=== PATIENT | male | born 1965 | race Caucasian/White ===

== ENCOUNTER 2018-09-23 23:19 | Inpatient (IN) | payer BC, OTHER ==
[2018-09-23 23:55] LABS: ADD MAN DIFF? NO
[2018-09-24 00:05] LABS: WHITE BLOOD COUNT 18.1 10^3/ul (4.8-10.8)
[2018-09-24 00:05] LABS: BASOPHIL # 0.1 10^3/ul (0.0-0.1); BASOPHILS % 0.3 % (0.0-2.0); EOSINOPHILS # 0.1 10^3/ul (0.0-0.5); EOSINOPHILS % 0.8 % (0.0-7.0); HEMOGLOBIN 15.4 g/dl (14.0-18.0); LYMPHOCYTES # 1.3 10^3/ul (0.8-2.9); LYMPHOCYTES % 7.3 % (15.0-51.0); MEAN CORPUSCULAR HEMOGLOBIN 31.2 pg (29.0-33.0); MEAN CORPUSCULAR HGB CONC 32.8 g/dl (32.0-37.0); MEAN CORPUSCULAR VOLUME 95.3 fl (82.0-101.0); MEAN PLATELET VOLUME 9.1 fl (7.4-10.4); MONOCYTE # 1.2 10^3/ul (0.3-0.9); MONOCYTES % 6.5 % (0.0-11.0); NEUTROPHIL # 15.3 10^3/ul (1.6-7.5); NEUTROPHILS % 84.4 % (39.0-77.0); PLATELET COUNT 205 10^3/UL (140-415); RED BLOOD COUNT 4.93 10^6/ul (4.70-6.10); RED CELL DISTRIBUTION WIDTH 12.5 % (11.5-14.5)
[2018-09-24] MEDS: SODIUM CHLORIDE 0.9% 1L BAG IV* (00:06)
[2018-09-24] MEDS: PIPER-TAZO 3.375 GM IV (PMX) 100 ML IVPB (00:06)
[2018-09-24 00:30] LABS: LACTIC ACID 1.3 mmol/L (0.5-2.0)
[2018-09-24 00:30] LABS: ALANINE AMINOTRANSFERASE 30 IU/L (13-69); ALBUMIN 4.4 g/dl (3.3-4.9); ALBUMIN/GLOBULIN RATIO 1.29; ALKALINE PHOSPHATASE 47 IU/L (42-121); ANION GAP 7 (5-13); ASPARTATE AMINO TRANSFERASE 25 IU/L (15-46); BILIRUBIN,INDIRECT 0.3 mg/dl (0-1.1); BILIRUBIN,TOTAL 0.3 mg/dl (0.2-1.3); BLOOD UREA NITROGEN 17 mg/dl (7-20); CALCIUM 9.2 mg/dl (8.4-10.2); CARBON DIOXIDE 28 mmol/L (21-31); CHLORIDE 106 mmol/L (97-110); CREATININE 0.92 mg/dl (0.61-1.24); Estimated GFR > 60 mL/min (>60); GLUCOSE 111 mg/dl (70-220); INR 0.88; POTASSIUM 4.2 mmol/L (3.5-5.1); PT RATIO 0.9; SODIUM 141 mmol/L (135-144); TOTAL PROTEIN 7.8 g/dl (6.1-8.1)
[2018-09-24 00:31] LABS: PARTIAL THROMBOPLASTIN TIME 26.6 Sec (23.0-35.0)
[2018-09-24 00:41] LABS: TROPONIN-I < 0.012 ng/ml (0.000-0.120)
[2018-09-24] MEDS: VANCOMYCIN 1 GM (PMX) 250 ML IVPB (00:44)
[2018-09-24 01:47] LABS: ADD UMIC NO; UR ASCORBIC ACID NEGATIVE (NEGATIVE); UR BILIRUBIN (Dip) NEGATIVE (NEGATIVE); UR BLOOD (Dip) NEGATIVE (NEGATIVE); UR CLARITY CLEAR (CLEAR); UR COLOR YELLOW (YELLOW); UR GLUCOSE (Dip) NEGATIVE (NEGATIVE); UR KETONES (Dip) NEGATIVE (NEGATIVE); UR LEUKOCYTE ESTERASE (Dip) NEGATIVE Leu/ul (NEGATIVE); UR NITRITE (Dip) NEGATIVE (NEGATIVE); UR SPECIFIC GRAVITY (Dip) 1.013 (1.003-1.030); UR TOTAL PROTEIN (Dip) NEGATIVE (NEGATIVE); UR UROBILINOGEN (Dip) NEGATIVE (NEGATIVE)
[2018-09-24 05:51] LABS: ADD MAN DIFF? NO
[2018-09-24 05:54] LABS: BASOPHILS % 0.2 % (0.0-2.0); EOSINOPHILS # 0.1 10^3/ul (0.0-0.5); EOSINOPHILS % 0.5 % (0.0-7.0); HEMATOCRIT 42.2 % (42.0-52.0); HEMOGLOBIN 13.9 g/dl (14.0-18.0); LYMPHOCYTES # 1.3 10^3/ul (0.8-2.9); LYMPHOCYTES % 8.8 % (15.0-51.0); MEAN CORPUSCULAR HEMOGLOBIN 31.6 pg (29.0-33.0); MEAN CORPUSCULAR HGB CONC 32.9 g/dl (32.0-37.0); MEAN CORPUSCULAR VOLUME 95.9 fl (82.0-101.0); MEAN PLATELET VOLUME 9.1 fl (7.4-10.4); MONOCYTE # 0.9 10^3/ul (0.3-0.9); MONOCYTES % 6.1 % (0.0-11.0); NEUTROPHIL # 12.6 10^3/ul (1.6-7.5); NEUTROPHILS % 83.9 % (39.0-77.0); PLATELET COUNT 174 10^3/UL (140-415); RED CELL DISTRIBUTION WIDTH 12.8 % (11.5-14.5)
[2018-09-24 05:54] LABS: WHITE BLOOD COUNT 15.1 10^3/ul (4.8-10.8)
[2018-09-24] MEDS ORDERED: HYDROCODONE/APAP (5/325) TAB PO (06:00)
[2018-09-24] MEDS ORDERED: ONDANSETRON 4 MG INJ IV (06:00)
[2018-09-24] MEDS ORDERED: NACL 0.9% 3 ML SYG IV (06:00)
[2018-09-24] MEDS ORDERED: VANCOMYCIN IV PER PHARMACY XX (06:00)
[2018-09-24 06:17] LABS: ALANINE AMINOTRANSFERASE 33 IU/L (13-69); ALBUMIN 4.3 g/dl (3.3-4.9); ALKALINE PHOSPHATASE 48 IU/L (42-121); ANION GAP 8 (5-13); ASPARTATE AMINO TRANSFERASE 24 IU/L (15-46); BILIRUBIN,INDIRECT 0.3 mg/dl (0-1.1); BILIRUBIN,TOTAL 0.3 mg/dl (0.2-1.3); BLOOD UREA NITROGEN 17 mg/dl (7-20); CALCIUM 9.4 mg/dl (8.4-10.2); CARBON DIOXIDE 29 mmol/L (21-31); CHLORIDE 106 mmol/L (97-110); CREATININE 0.92 mg/dl (0.61-1.24); Estimated GFR > 60 mL/min (>60); GLUCOSE 105 mg/dl (70-220); MAGNESIUM 1.9 mg/dl (1.7-2.5); PHOSPHORUS 3.2 mg/dl (2.5-4.9); POTASSIUM 4.3 mmol/L (3.5-5.1); SODIUM 143 mmol/L (135-144); TOTAL PROTEIN 7.6 g/dl (6.1-8.1)
[2018-09-24] MEDS: PANTOPRAZOLE (EC) 40 MG TAB PO (06:30)
[2018-09-24] MEDS: SOD CHLORIDE 0.9% 1,000 ML IV ×3 (06:50→17:17)
[2018-09-24] MEDS: VANCOMYCIN 1 GM 250 ML IVPB (06:55)
[2018-09-24] MEDS: ACETAMINOPHEN 325 MG TAB PO (06:55)
[2018-09-24 07:33] LABS: LACTIC ACID 1.2 mmol/L (0.5-2.0)
[2018-09-24] MEDS: CEFEPIME 1GM/50 ML (PMX) 50 ML IVPB ×2 (08:49→21:07)
[2018-09-24] MEDS: ASPIRIN (EC) 81 MG TAB PO (08:55)
[2018-09-24] MEDS: ENOXAPARIN 40 MG/0.4 ML SYG SC (08:55)
[2018-09-24] MEDS ORDERED: NON-FORMULARY/PATIENT OWN MED (Omeprazole* (Prilosec*) 40 MG) PO (09:00)
[2018-09-24] MEDS: VANCOMYCIN HCL 1.25 GM in SOD CHLORIDE 0.9% 250 ML IVPB (21:45)
[2018-09-25] MEDS: PANTOPRAZOLE (EC) 40 MG TAB PO (05:45)
[2018-09-25 06:04] LABS: ADD MAN DIFF? NO
[2018-09-25 06:11] LABS: BASOPHIL # 0.1 10^3/ul (0.0-0.1); BASOPHILS % 0.5 % (0.0-2.0); EOSINOPHILS # 0.2 10^3/ul (0.0-0.5); EOSINOPHILS % 1.8 % (0.0-7.0); HEMATOCRIT 42.2 % (42.0-52.0); HEMOGLOBIN 14.1 g/dl (14.0-18.0); LYMPHOCYTES # 1.9 10^3/ul (0.8-2.9); LYMPHOCYTES % 17.1 % (15.0-51.0); MEAN CORPUSCULAR HEMOGLOBIN 31.6 pg (29.0-33.0); MEAN CORPUSCULAR HGB CONC 33.4 g/dl (32.0-37.0); MEAN CORPUSCULAR VOLUME 94.6 fl (82.0-101.0); MEAN PLATELET VOLUME 9.2 fl (7.4-10.4); MONOCYTES % 9.4 % (0.0-11.0); NEUTROPHIL # 7.7 10^3/ul (1.6-7.5); NEUTROPHILS % 70.6 % (39.0-77.0); PLATELET COUNT 163 10^3/UL (140-415); RED BLOOD COUNT 4.46 10^6/ul (4.70-6.10)
[2018-09-25 06:11] LABS: WHITE BLOOD COUNT 10.9 10^3/ul (4.8-10.8)
[2018-09-25 06:36] LABS: ANION GAP 6 (5-13); BLOOD UREA NITROGEN 11 mg/dl (7-20); CALCIUM 8.6 mg/dl (8.4-10.2); CARBON DIOXIDE 26 mmol/L (21-31); CHLORIDE 109 mmol/L (97-110); Estimated GFR > 60 mL/min (>60); GLUCOSE 111 mg/dl (70-220); POTASSIUM 4.2 mmol/L (3.5-5.1); SODIUM 141 mmol/L (135-144)
[2018-09-25] MEDS: VANCOMYCIN HCL 1.25 GM in SOD CHLORIDE 0.9% 250 ML IVPB ×2 (08:30→20:17)
[2018-09-25] MEDS: ASPIRIN (EC) 81 MG TAB PO (08:30)
[2018-09-25] MEDS: CEFEPIME 1GM/50 ML (PMX) 50 ML IVPB (08:30)
[2018-09-25] MEDS: ENOXAPARIN 40 MG/0.4 ML SYG SC (08:32)
[2018-09-25] MEDS: SOD CHLORIDE 0.9% 1,000 ML IV (08:33)
[2018-09-25] MEDS: HYDROCODONE/APAP (5/325) TAB PO (12:33)
[2018-09-25] MEDS: PIPER-TAZO 3.375 GM IV (PMX) 100 ML IVPB ×2 (14:22→23:33)
[2018-09-25 19:31] LABS: VANCOMYCIN,TROUGH 6.9 ug/ml (10.0-20.0)
[2018-09-25] MEDS: FUROSEMIDE 40 MG INJ IV (20:18)
[2018-09-26] MEDS: VANCOMYCIN 1 GM 250 ML IVPB ×3 (03:48→21:12)
[2018-09-26] MEDS: PANTOPRAZOLE (EC) 40 MG TAB PO (05:35)
[2018-09-26] MEDS: PIPER-TAZO 3.375 GM IV (PMX) 100 ML IVPB ×2 (06:04→14:19)
[2018-09-26] MEDS: ENOXAPARIN 40 MG/0.4 ML SYG SC (09:07)
[2018-09-26] MEDS: ASPIRIN (EC) 81 MG TAB PO (09:08)
[2018-09-26] MEDS: CEFTRIAXONE 1 GM/50 ML (PMX) 50 ML IVPB (15:54)
[2018-09-27] MEDS: VANCOMYCIN 1 GM 250 ML IVPB ×3 (03:55→20:28)
[2018-09-27 05:41] LABS: ADD MAN DIFF? NO
[2018-09-27 05:48] LABS: BASOPHIL # 0.1 10^3/ul (0.0-0.1); EOSINOPHILS # 0.3 10^3/ul (0.0-0.5); EOSINOPHILS % 4.3 % (0.0-7.0); HEMATOCRIT 43.2 % (42.0-52.0); HEMOGLOBIN 14.2 g/dl (14.0-18.0); LYMPHOCYTES # 2.2 10^3/ul (0.8-2.9); LYMPHOCYTES % 32.3 % (15.0-51.0); MEAN CORPUSCULAR HEMOGLOBIN 31.3 pg (29.0-33.0); MEAN CORPUSCULAR HGB CONC 32.9 g/dl (32.0-37.0); MEAN CORPUSCULAR VOLUME 95.4 fl (82.0-101.0); MONOCYTE # 0.9 10^3/ul (0.3-0.9); MONOCYTES % 12.8 % (0.0-11.0); NEUTROPHIL # 3.3 10^3/ul (1.6-7.5); NEUTROPHILS % 48.6 % (39.0-77.0); PLATELET COUNT 204 10^3/UL (140-415); RED BLOOD COUNT 4.53 10^6/ul (4.70-6.10); RED CELL DISTRIBUTION WIDTH 12.4 % (11.5-14.5)
[2018-09-27 05:48] LABS: WHITE BLOOD COUNT 6.7 10^3/ul (4.8-10.8)
[2018-09-27] MEDS: PANTOPRAZOLE (EC) 40 MG TAB PO (06:02)
[2018-09-27] MEDS: ENOXAPARIN 40 MG/0.4 ML SYG SC (09:54)
[2018-09-27] MEDS: ASPIRIN (EC) 81 MG TAB PO (09:57)
[2018-09-27 11:10] LABS: VANCOMYCIN,TROUGH 10.3 ug/ml (10.0-20.0)
[2018-09-27] MEDS: CEFTRIAXONE 1 GM/50 ML (PMX) 50 ML IVPB (16:17)
[2018-09-28] MEDS: VANCOMYCIN 1 GM 250 ML IVPB ×2 (04:04→12:00)
[2018-09-28] MEDS: PANTOPRAZOLE (EC) 40 MG TAB PO (05:58)
[2018-09-28 07:22] LABS: ADD MAN DIFF? NO
[2018-09-28 07:26] LABS: BASOPHIL # 0.1 10^3/ul (0.0-0.1); EOSINOPHILS # 0.3 10^3/ul (0.0-0.5); EOSINOPHILS % 3.6 % (0.0-7.0); HEMATOCRIT 43.3 % (42.0-52.0); HEMOGLOBIN 14.1 g/dl (14.0-18.0); LYMPHOCYTES # 2.2 10^3/ul (0.8-2.9); LYMPHOCYTES % 30.3 % (15.0-51.0); MEAN CORPUSCULAR HEMOGLOBIN 31.1 pg (29.0-33.0); MEAN CORPUSCULAR HGB CONC 32.6 g/dl (32.0-37.0); MEAN CORPUSCULAR VOLUME 95.4 fl (82.0-101.0); MEAN PLATELET VOLUME 9.1 fl (7.4-10.4); MONOCYTE # 0.8 10^3/ul (0.3-0.9); MONOCYTES % 10.9 % (0.0-11.0); NEUTROPHIL # 3.8 10^3/ul (1.6-7.5); NEUTROPHILS % 52.7 % (39.0-77.0); PLATELET COUNT 227 10^3/UL (140-415); RED BLOOD COUNT 4.54 10^6/ul (4.70-6.10); RED CELL DISTRIBUTION WIDTH 12.4 % (11.5-14.5)
[2018-09-28 07:26] LABS: WHITE BLOOD COUNT 7.3 10^3/ul (4.8-10.8)
[2018-09-28] MEDS: ASPIRIN (EC) 81 MG TAB PO (08:37)
[2018-09-28] MEDS: ENOXAPARIN 40 MG/0.4 ML SYG SC (08:38)
== END 2018-09-28 13:48 | disposition home or self-care (01) | DRG 872 ==
LOC: E/R 23:19 → PP2 09-24 00:49
DX: A41.9 Sepsis, unspecified organism (principal); L03.115 Cellulitis of right lower limb; Z68.41 Body mass index [BMI] 40.0-44.9, adult; Z72.0 Tobacco use; L73.9 Follicular disorder, unspecified; E66.9 Obesity, unspecified
CPT/HCPCS: 36415; 71045; 80048; 80053; 80202; 81003; 83605; 83735; 84100; 84484; 85025; 85610; 85730; 87040-91; 87070; 87086; 93005; 93926; 93971; 96365; 96375; 99285-25